=== PATIENT | female | born 1955 | race Two or more races ===

== ENCOUNTER → 2024-03-13 | Outpatient (CLI) | payer MEDICARE | END | disposition home or self-care (01) | LOC: RADPV 10:19 | PROVIDERS: ATTEND Internal Medicine Cardiovascular Disease | DX: I87.2 Venous insufficiency (chronic) (peripheral) (principal); M79.606 Pain in leg, unspecified; I10 Essential (primary) hypertension; E11.9 Type 2 diabetes mellitus without complications | CPT/HCPCS: 93970 ==